=== PATIENT | male | born 1965 | race Caucasian/White ===

== ENCOUNTER 2017-02-22 05:19 | Day surgery (SDC) | END 2017-02-22 09:40 | disposition home or self-care (01) | DX: H11.001 Unspecified pterygium of right eye (principal); E78.5 Hyperlipidemia, unspecified; E66.9 Obesity, unspecified; Z68.29 Body mass index [BMI] 29.0-29.9, adult | CPT/HCPCS: 65426; J2001; J9280 ==

== ENCOUNTER 2018-05-23 06:53 | Day surgery (SDC) | END 2018-05-23 11:30 | disposition home or self-care (01) ==